=== PATIENT | male | born 1995 | race Caucasian/White ===

== ENCOUNTER 2019-03-28 20:56 | Emergency (ER) | payer OTHER ==
[~2019-03-28] VITALS: Ht 188 cm; Wt 68.9 kg
[2019-03-28 21:15] VITALS: BP 122/65
[2019-03-28 22:31] VITALS: BP 122/65
== END 2019-03-28 22:31 | disposition home or self-care (01) ==
LOC: MED 20:56
DX: F12.10 Cannabis abuse, uncomplicated (principal); F17.210 Nicotine dependence, cigarettes, uncomplicated; R07.9 Chest pain, unspecified; Z71.6 Tobacco abuse counseling
CPT/HCPCS: 71045; 93005; 99283

== ENCOUNTER 2019-06-18 18:46 | Emergency (ER) | payer OTHER ==
[~2019-06-18] VITALS: Ht 188 cm; Wt 64.9 kg
[2019-06-18 19:10] VITALS: BP 128/90
--- NOTE | 2019-06-18 19:10 | NUR ---
TO BED # 01 AMBULATORY
--- NOTE | 2019-06-18 19:33 | NUR ---
24 YEAR OLD MALE COMPLAINS OF LEFT TESTICULAR PAIN X 1.5 HOURS. PATIENT STATES PAIN IS 5/10 AND DULL. PATIENT DENIES TRAUMA. DR BAKER AT BEDSIDE EXAMINING PATIENT WITH NURSE SHIRIN. PATIENT AOX4, BREATHING EVEN AND UNLABORED, SKIN WARM AND DRY. BED IN LOWEST POSITION, LOCKED, BED RAIL UPX1. ALLERGIES - NKA
[2019-06-18 19:44] VITALS: BP 128/90
--- NOTE | 2019-06-18 19:44 | NUR ---
DISCHARGE DONE BY DR BAKER. Patient discharged with v/s stable. Written and verbal after care instructions ABOUT EPIDIDYMITIS given and explained. Patient alert, oriented and verbalized understanding of instructions. Ambulatory with steady gait. All questions addressed prior to discharge. ID band removed. Patient advised to follow up with PMD. Rx of NAPROSYN AND CIPRO given. Patient educated on indication of medication including possible reaction and side effects. Opportunity to ask questions provided and answered.
== END 2019-06-18 19:44 | disposition home or self-care (01) ==
LOC: MED 18:46
DX: N45.1 Epididymitis (principal)
CPT/HCPCS: 99283